=== PATIENT | male | born 1945 | race Caucasian/White ===

== ENCOUNTER → 2017-02-13 | Outpatient (CLI) | payer MEDICARE ==
--- NOTE | 2017-02-13 08:13 | US ---
EXAMINATION TYPE: US duplex aorta DATE OF EXAM: 02/13/2017 COMPARISON: NONE CLINICAL HISTORY: Screening for AAA Z13.9. EXAM MEASUREMENTS: Abdominal Aorta: Proximal: 1.5 x 1.8 cm Mid: 1.7 x 1.9 cm Distal: 1.7 x 1.7 cm Bifurcation: Right = 1.0 x 0.9 cm Left = 1.0 x 1.1 cm Suboptimal visualization due to overlying bowel gas IMPRESSION: 1. Subtle fusiform prominence of the mid to distal abdominal aorta by measurements. No aneurysmal dil atation is evident.
== END | disposition home or self-care (01) ==
LOC: RADUSWWP 07:21
PROVIDERS: ATTEND Family Medicine
DX: Z13.6 Encounter for screening for cardiovascular disorders (principal)
CPT/HCPCS: 93979

== ENCOUNTER 2017-05-07 07:21 | Day surgery (SDC) | payer MEDICARE ==
[2017-05-03 16:57] VITALS: BMI 26.9
[~2017-05-07 07:21] MED LIST: LACTATED RINGERS 1,000 ML IV SCH
[2017-05-07 07:38] VITALS: RESP 16; TEMP 98
[2017-05-07] MEDS ORDERED: LIDOCAINE 1% 20 ML VIAL (10MG/ML) FOR IV START INTRADERMA ONE (07:45)
[2017-05-07 07:49] LABS: Glucose,Whole Blood 137 mg/dL (75-99)
[2017-05-07] MEDS ORDERED: LIDOCAINE 1% INJ 10MG/ML (20 ML MDV) ONE (08:30)
[2017-05-07] MEDS ORDERED: PROPOFOL 10 MG/ML 20 ML VIAL IV ONE (08:30)
--- NOTE | 2017-05-07 09:09 | P.PCN ---
Date of Procedure: 05/07/17 Procedure(s) Performed: Procedure: Colonoscopy and polypectomy. Preoperative diagnosis: Positive cologuard stool test. Postoperative diagnosis: 1. Two small polyps snared but no large polyps or cancer. 2. Diverticulosis with no evidence of acute diverticulitis or strictures. Preparation: HalfLytely prep. Sedation: Was provided by anesthesia. Brief clinical history: The patient is a 72-year-old male who is referred for this evaluation because of positive DNA and occult blood in his stools ( cologuard). The patient had colonoscopy more than 12 years ago. He denied any abdominal symptoms, change in bowel habit or overt bleeding. Procedure: With the patient on his left lateral decubitus position and after informed consent and adequate sedation, the perianal area was inspected and it did not show any fissures or fistulas. There were no masses felt on digital rectal examination. The Olympus CFQ 160L video colonoscope was then inserted in the rectum in the usual fashion and advanced to the cecum. There were 2 small polyps seen, one in the proximal right colon and one in the rectum close to the rectosigmoid junction, which I snared and retrieved by suction, but there were no large polyps or cancer. Several small diverticular orifices were seen scattered in the sigmoid and there was a rare orifice around the hepatic flexure and on the right side with no evidence of acute diverticulitis or strictures. The mucosa appeared healthy. I retroflexed the endoscope in the rectum before the endoscope was withdrawn. The patient tolerated the procedure well. Plan: The patient was reassured. Discussed dietary measures. He will follow up with you as planned and I recommended repeat colonoscopy in 5 years.
[2017-05-07 09:20] LABS: Glucose,Whole Blood 158 mg/dL (75-99)
[2017-05-07 09:21] VITALS: BP 108/66; PULSE 60
== END 2017-05-07 09:43 | disposition home or self-care (01) ==
LOC: ORWHC2ENDO 07:21
DX: D12.2 Benign neoplasm of ascending colon (principal); K63.5 Polyp of colon; E11.9 Type 2 diabetes mellitus without complications; I10 Essential (primary) hypertension; E78.5 Hyperlipidemia, unspecified; K21.9 Gastro-esophageal reflux disease without esophagitis; Z79.82 Long term (current) use of aspirin; Z79.4 Long term (current) use of insulin; Z79.899 Other long term (current) drug therapy
CPT/HCPCS: 88305; 45385; J2001; J2704

== ENCOUNTER 2018-02-24 06:24 | Inpatient (IN) | payer MEDICARE ==
[2018-02-24] MEDS ORDERED: ONDANSETRON 4 MG/2 ML VIAL IVP STA (06:41)
[2018-02-24] MEDS ORDERED: SODIUM CHLORIDE 0.9% 1,000 ML IV STA (06:41)
--- NOTE | 2018-02-24 06:43 | ED ---
General Adult HPI - General Chief complaint: Abdominal Pain Stated complaint: Back/Abd Pain Time Seen by Provider: 02/24/18 06:34 Source: patient, family, RN notes reviewed Mode of arrival: ambulatory Limitations: no limitations - History of Present Illness Initial comments: Patient 73-year-old male presented to the emergency room today with a chief complaint of right upper quadrant abdominal pain starting yesterday afternoon. He does admit that he had a cheese sandwich for lunch. He believes that maybe his gallbladder. He states he does have a history of gallstones. Patient does admit to symptoms of nausea with some dry heaves. Patient states pains located in the right upper quadrant at times feeling wrapping around to the right side of the back. Patient currently rates pain 7/10 at this time. He denies any other symptoms or complaints. Patient denies any recent fever, chills, shortness of breath, chest pain, numbness or tingling, dysuria or hematuria, constipation or diarrhea, headaches or visual changes, or any other complaints. - Related Data Home Medications Medication Instructions Recorded Confirmed Aspirin 81 mg PO DAILY 05/03/17 02/24/18 Atorvastatin [Lipitor] 10 mg PO HS 05/03/17 02/24/18 Finasteride [Proscar] 5 mg PO HS 05/03/17 02/24/18 Fish Oil/Dha/Epa [Fish Oil 1,200 1 cap PO DAILY 05/03/17 02/24/18 mg Fish Oil] INSULIN LISPRO (HumaLOG) [HumaLOG] 11 units SQ AC-LUNCH 05/03/17 02/24/18 Insulin Lispro Protamin/Lispro 30 unit SQ QAM 05/03/17 02/24/18 [humaLOG Mix 75-25 Kwikpen] Insulin Lispro Protamin/Lispro 35 unit SQ HS 05/03/17 02/24/18 [humaLOG Mix 75-25 Kwikpen] Lisinopril-Hctz 20-12.5 mg 1 tab PO DAILY 05/03/17 02/24/18 [Zestoretic 20-12.5] Multivitamin [Men's Multi-Vitamin] 1 tab PO DAILY 05/03/17 02/24/18 metFORMIN HCL [Glucophage] 500 mg PO BID 05/03/17 02/24/18 Allergies Allergy/AdvReac Type Severity Reaction Status Date / Time bee pollen Allergy Anaphylaxis Verified 02/24/18 07:45 Review of Systems ROS Statement: Those systems with pertinent positive or pertinent negative responses have been documented in the HPI. ROS Other: All systems not noted in ROS Statement are negative. Past Medical History Past Medical History: Diabetes Mellitus, Hyperlipidemia, Hypertension Additional Past Medical History / Comment(s): resolving bronchitis, recent fecal test positive blood History of Any Multi-Drug Resistant Organisms: None Reported Past Surgical History: Orthopedic Surgery Additional Past Surgical History / Comment(s): colonoscopy, rotator cuff repair , hydrocele repair Past Anesthesia/Blood Transfusion Reactions: No Reported Reaction Past Psychological History: No Psychological Hx Reported Smoking Status: Former smoker Past Alcohol Use History: None Reported Past Drug Use History: None Reported - Past Family History Mother Family Medical History: No Reported History General Exam - General Exam Comments Initial Comments: General: The patient is awake and alert, in no distress, and does not appear acutely ill. Eye: Pupils are equal, round and reactive to light, extra-ocular movements are intact. No nystagmus. There is normal conjunctiva bilaterally. No signs of icterus. Ears, nose, mouth and throat: There are moist mucous membranes and no oral lesions. Neck: The neck is supple, there is no tenderness or JVD. Cardiovascular: There is a regular rate and rhythm. No murmur, rub or gallop is appreciated. Respiratory: Lungs are clear to auscultation, respirations are non-labored, breath sounds are equal. No wheezes, stridor, rales, or rhonchi. Gastrointestinal: Abdomen soft on palpation. No specific abdominal tenderness. No flank or CVA tenderness. No rebound or guarding. Musculoskeletal: Normal ROM, no tenderness. Strength 5/5. Sensation intact. Pulses equal bilaterally 2+. Neurological: A&O x 3. CN II-XII intact, There are no obvious motor or sensory deficits. Coordination appears grossly intact. Speech is normal. Skin: Skin is warm and dry and no rashes or lesions are noted. Psychiatric: Cooperative, appropriate mood & affect, normal judgment. Limitations: no limitations Course Vital Signs 02/24/18 06:26 Temperature 97.7 F Pulse Rate 82 Respiratory 18 Rate Blood Pressure 151/78 O2 Sat by Pulse 98 Oximetry Medical Decision Making - Medical Decision Making Patient's ultrasound reviewed and does show a mild hepatomegaly. There is evidence for cholelithiasis and mild gallbladder wall thickening. Sonographic Nieves sign absent. Findings probably represent a chronic cholecystitis. As read by radiologist Dr. Moncada. Patient's labs reviewed. No elevated white count. No fever here in emergency room. Patient currently comfortable at this time was given any pain medication. Patient amylase lipase are markedly elevated greater than 1300 and 12,000 respectively. Mild elevation of liver enzymes. Patient will be admitted to the hospital consult from surgery. Patient and family aware the plan. - Lab Data Result diagrams: 02/24/18 07:00 02/24/18 07:00 Lab Results 02/24/18 02/24/18 02/24/18 Range/Units 07:00 07:00 07:00 WBC 10.7 H (3.8-10.6) k/uL RBC 5.00 (4.30-5.90) m/uL Hgb 15.3 (13.0-17.5) gm/dL Hct 44.6 (39.0-53.0) % MCV 89.2 (80.0-100.0) fL MCH 30.6 (25.0-35.0) pg MCHC 34.3 (31.0-37.0) g/dL RDW 13.6 (11.5-15.5) % Plt Count 150 (150-450) k/uL Neutrophils % 66 % Lymphocytes % 27 % Monocytes % 6 % Eosinophils % 1 % Basophils % 1 % Neutrophils # 7.1 (1.3-7.7) k/uL Lymphocytes # 2.9 (1.0-4.8) k/uL Monocytes # 0.6 (0-1.0) k/uL Eosinophils # 0.1 (0-0.7) k/uL Basophils # 0.1 (0-0.2) k/uL PT (9.0-12.0) sec INR (<1.2) APTT (22.0-30.0) sec Sodium 140 (137-145) mmol/L Potassium 3.8 (3.5-5.1) mmol/L Chloride 105 (98-107) mmol/L Carbon Dioxide 28 (22-30) mmol/L Anion Gap 7 mmol/L BUN 21 H (9-20) mg/dL Creatinine 0.92 (0.66-1.25) mg/dL Est GFR (CKD-EPI)AfAm >90 (>60 ml/min/1.73 sqM) Est GFR (CKD-EPI)NonAf 83 (>60 ml/min/1.73 sqM) Glucose 149 H (74-99) mg/dL Calcium 8.8 (8.4-10.2) mg/dL Total Bilirubin 5.5 H (0.2-1.3) mg/dL AST 368 H (17-59) U/L ALT 427 H (21-72) U/L Alkaline Phosphatase 123 (38-126) U/L Total Creatine Kinase 63 (55-170) U/L CK-MB (CK-2) 1.6 (0.0-2.4) ng/mL CK-MB (CK-2) Rel Index 2.5 Troponin I <0.012 (0.000-0.034) ng/mL Total Protein 6.1 L (6.3-8.2) g/dL Albumin 3.5 (3.5-5.0) g/dL Amylase 1315 H* (30-110) U/L Lipase 11663 H (23-300) U/L Urine Color Urine Appearance (Clear) Urine pH (5.0-8.0) Ur Specific [place] (1.001-1.035) Urine Protein (Negative) Urine Glucose (UA) (Negative) Urine Ketones (Negative) Urine Blood (Negative) Urine Nitrite (Negative) Urine Bilirubin (Negative) Urine Urobilinogen (<2.0) mg/dL Ur Leukocyte Esterase (Negative) 02/24/18 02/24/18 Range/Units 07:00 07:00 WBC (3.8-10.6) k/uL RBC (4.30-5.90) m/uL Hgb (13.0-17.5) gm/dL Hct (39.0-53.0) % MCV (80.0-100.0) fL MCH (25.0-35.0) pg MCHC (31.0-37.0) g/dL RDW (11.5-15.5) % Plt Count (150-450) k/uL Neutrophils % % Lymphocytes % % Monocytes % % Eosinophils % % Basophils % % Neutrophils # (1.3-7.7) k/uL Lymphocytes # (1.0-4.8) k/uL Monocytes # (0-1.0) k/uL Eosinophils # (0-0.7) k/uL Basophils # (0-0.2) k/uL PT 10.9 (9.0-12.0) sec INR 1.1 (<1.2) APTT 22.3 (22.0-30.0) sec Sodium (137-145) mmol/L Potassium (3.5-5.1) mmol/L Chloride (98-107) mmol/L Carbon Dioxide (22-30) mmol/L Anion Gap mmol/L BUN (9-20) mg/dL Creatinine (0.66-1.25) mg/dL Est GFR (CKD-EPI)AfAm (>60 ml/min/1.73 sqM) Est GFR (CKD-EPI)NonAf (>60 ml/min/1.73 sqM) Glucose (74-99) mg/dL Calcium (8.4-10.2) mg/dL Total Bilirubin (0.2-1.3) mg/dL AST (17-59) U/L ALT (21-72) U/L Alkaline Phosphatase (38-126) U/L Total Creatine Kinase (55-170) U/L CK-MB (CK-2) (0.0-2.4) ng/mL CK-MB (CK-2) Rel Index Troponin I (0.000-0.034) ng/mL Total Protein (6.3-8.2) g/dL Albumin (3.5-5.0) g/dL Amylase (30-110) U/L Lipase (23-300) U/L Urine Color [place] Urine Appearance Clear (Clear) Urine pH 5.5 (5.0-8.0) Ur Specific [place] 1.013 (1.001-1.035) Urine Protein Trace H (Negative) Urine Glucose (UA) Negative (Negative) Urine Ketones Trace H (Negative) Urine Blood Negative (Negative) Urine Nitrite Negative (Negative) Urine Bilirubin 2+ H (Negative) Urine Urobilinogen 6.0 (<2.0) mg/dL Ur Leukocyte Esterase Negative (Negative) Disposition Clinical Impression: Acute pancreatitis, Cholecystitis, Elevated liver enzymes Disposition: ADMITTED IP TO THIS [facility] Condition: Stable Is patient prescribed a controlled substance at d/c from ED?: No Referrals: Diogo Naranjo MD [Primary Care Provider] - 1-2 days Time of Disposition: 08:57
[2018-02-24 07:22] LABS: Appearance,Urine Clear (Clear); Bilirubin,Urine 2+ (Negative); Blood,Urine Negative (Negative); Color,Urine Orange; Glucose,Urine (UA) Negative (Negative); Ketones,Urine Trace (Negative); Leukocyte Esterase,Urine Negative (Negative); Nitrite,Urine Negative (Negative); PH, Urine 5.5 (5.0-8.0); Protein,Urine Trace (Negative); Specific Gravity,Urine 1.013 (1.001-1.035)
[2018-02-24 07:26] LABS: Basophils # (A) 0.1 k/uL (0-0.2); Basophils % (A) 1 %; Eosinophils # (A) 0.1 k/uL (0-0.7); Eosinophils % (A) 1 %; HCT 44.6 % (39.0-53.0); HGB 15.3 gm/dL (13.0-17.5); Lymphocytes # (A) 2.9 k/uL (1.0-4.8); Lymphocytes % (A) 27 %; MCH 30.6 pg (25.0-35.0); MCHC 34.3 g/dL (31.0-37.0); MCV 89.2 fL (80.0-100.0); Mean Platelet Volume 7.8; Monocytes # (A) 0.6 k/uL (0-1.0); Monocytes % (A) 6 %; Neutrophils # (A) 7.1 k/uL (1.3-7.7); Neutrophils % (A) 66 %; Platelet Count 150 k/uL (150-450); RDW 13.6 % (11.5-15.5); WBC 10.7 k/uL (3.8-10.6)
[2018-02-24 07:28] LABS: INR 1.1 (<1.2); Partial Thromboplastin Time 22.3 sec (22.0-30.0); Prothrombin Time 10.9 sec (9.0-12.0)
[2018-02-24 07:39] LABS: ALT 427 U/L (21-72); AST 368 U/L (17-59); Albumin 3.5 g/dL (3.5-5.0); Alkaline Phosphatase 123 U/L (38-126); Anion Gap 7 mmol/L; Blood Urea Nitrogen 21 mg/dL (9-20); Calcium 8.8 mg/dL (8.4-10.2); Carbon Dioxide 28 mmol/L (22-30); Chloride 105 mmol/L (98-107); Glucose 149 mg/dL (74-99); Potassium 3.8 mmol/L (3.5-5.1); Sodium 140 mmol/L (137-145); Total Bilirubin 5.5 mg/dL (0.2-1.3); Total Protein 6.1 g/dL (6.3-8.2)
[2018-02-24 07:43] LABS: Creatine Kinase 63 U/L (55-170)
--- NOTE | 2018-02-24 07:45 | XR ---
EXAMINATION TYPE: XR chest 2V DATE OF EXAM: 02/24/2018 COMPARISON: 04/02/2010 HISTORY: 73 year-old male right upper quadrant pain TECHNIQUE: PA and lateral views FINDINGS: Heart normal size. Atherosclerotic arch calcifications. Strandy atelectasis mid and lower right lung. No consolidation or pleural effusion. IMPRESSION: No acute cardiopulmonary process.
[2018-02-24 07:52] LABS: Amylase 1315 U/L (30-110)
[2018-02-24 07:55] LABS: Creatine Kinase MB 1.6 ng/mL (0.0-2.4); Troponin I <0.012 ng/mL (0.000-0.034)
[2018-02-24 08:32] LABS: Lipase 12301 U/L (23-300)
--- NOTE | 2018-02-24 08:38 | US ---
EXAMINATION TYPE: US abdomen limited DATE OF EXAM: 02/24/2018 COMPARISON: NONE CLINICAL HISTORY: 73-year-old male Pain. Technique: Multiple sonographic images of the right upper qu adrant are obtained. FINDINGS: Carbon Paste Mixer Operator notes: Technically difficult study, severe midline bowel gas obscuring all midline organ s. FINDINGS: EXAM MEASUREMENTS: Liver Length: 18.0 cm Gallbladder Wall: 0.5 cm CBD: 4.6 mm Right Kidney: 12.0 x 5.5 x 6.0 cm Pancreas: Obscured by bowel gas Liver: Increased attenuation, hepatomegaly, difficult to penetrate, left lobe completely obscured by bowel gas Gallbladder: Extensive layering calculi. Thickened wall Evidence for sonographic Nieves's sign: no CBD: Only a small portion is visualized, within normal limits. Right Kidney: No hydronephrosis. IMPRESSION: 1. Mild hepatomegaly (18.0 cm) with at least moderate hepatic steatosis. Correlate with LFTs, lipid p rofile, and patient risk factors. 2. Cholelithiasis and mild gallbladder wall thickening. Sonographic Nieves sign is reported absent. F indings probably represent chronic cholecystitis. If further imaging evaluation is desired or there i s clinical concern for early developing acute cholecystitis, consider follow-up HIDA scan.
[2018-02-24] MEDS ORDERED: MORPHINE SULFATE 4 MG/ML SYRINGE IV PRN (08:59)
[2018-02-24] MEDS ORDERED: ACETAMINOPHEN TAB 325 MG TAB PO PRN (08:59)
[2018-02-24] MEDS ORDERED: SODIUM CHLORIDE 0.9% 1,000 ML IV ONE (08:59)
[2018-02-24] MEDS ORDERED: ONDANSETRON 4 MG/2 ML VIAL IVP PRN (08:59)
[2018-02-24] MEDS ORDERED: NALOXONE 0.4 MG/ML 1 ML VIAL IV PRN (08:59)
[2018-02-24] MEDS ORDERED: MORPHINE SULFATE 4 MG/ML SYRINGE IVP PRN (11:04)
[2018-02-24 11:20] LABS: Glucose,Whole Blood 145 mg/dL (75-99)
--- NOTE | 2018-02-24 11:49 | P.HPIM ---
History of Present Illness 73-year-old nonalcoholic came in with compensative right upper quadrant abdominal pain severe 7/since 10 in severity nonradiating which started after eating a cheese sandwich, patient does have history of gallstones. Patient is found to have highly elevated lipase and amylase and gallstones and gallbladder thickening. Patient pain completely resolved patient denied any nausea vomiting at this point of time. Patient denied any fever chills. Patient's abdominal pain completely resolved Nieves's sign is negative. Patient is also found to have elevated liver enzymes and elevated bilirubin,, common bile duct was only visualized for small portion which was within normal limits. Review of Systems REVIEW OF SYSTEMS: CONSTITUTIONAL: No fever, no malaise, no fatigue. HEENT: No recent visual problems or hearing problems. Denied any sore throat. CARDIOVASCULAR: No chest pain, orthopnea, PND, no palpitations, no syncope. PULMONARY: No shortness of breath, no cough, no hemoptysis. GASTROINTESTINAL: As mentioned in HPI NEUROLOGICAL: No headaches, no weakness, no numbness. HEMATOLOGICAL: Denies any bleeding or petechiae. GENITOURINARY: Denies any burning micturition, frequency, or urgency. MUSCULOSKELETAL/RHEUMATOLOGICAL: Denies any joint pain, swelling, or any muscle pain. ENDOCRINE: Denies any polyuria or polydipsia. The rest of the 14-point review of systems is negative. Past Medical History Past Medical History: Diabetes Mellitus, Eye Disorder, Hyperlipidemia, Hypertension, Liver Disease, Prostate Disorder Additional Past Medical History / Comment(s): Frequent bronchitis, Iddm type II , diverticular dx, benign colon polyp, BPH, arthritis several joints, varicose veins L leg, psoriasis, occasional bilateral tinnitis, past L eye sees bright lights-followed with woodwind instrument repairer and not currently a problem, hepatitis when 19 or 20yrs old-does not know type, Ecoli in blood. History of Any Multi-Drug Resistant Organisms: None Reported Past Surgical History: Orthopedic Surgery Additional Past Surgical History / Comment(s): colonoscopy/benign polypectomy, L rotator cuff repair, L hydrocele repair, wisdom teeth extraction. Past Anesthesia/Blood Transfusion Reactions: No Reported Reaction Additional Past Anesthesia/Blood Transfusion Reaction / Comment(s): Pt once had a denny for 3 days after spinal anesthesia Smoking Status: Former smoker - Past Family History Mother Family Medical History: No Reported History Additional Family Medical History / Comment(s): Mother is healthy and is 93 yrs old. Father Family Medical History: Myocardial Infarction ([place]) Additional Family Medical History / Comment(s): father of a [place] at the age of 43yrs. Medications and Allergies Home Medications Medication Instructions Recorded Confirmed Type Aspirin 81 mg PO DAILY 05/03/17 02/24/18 History Atorvastatin [Lipitor] 10 mg PO HS 05/03/17 02/24/18 History Finasteride [Proscar] 5 mg PO HS 05/03/17 02/24/18 History Fish Oil/Dha/Epa [Fish Oil 1,200 1 cap PO DAILY 05/03/17 02/24/18 History mg Fish Oil] INSULIN LISPRO (HumaLOG) [HumaLOG] 11 units SQ AC-LUNCH 05/03/17 02/24/18 History Insulin Lispro Protamin/Lispro 30 unit SQ QAM 05/03/17 02/24/18 History [humaLOG Mix 75-25 Kwikpen] Insulin Lispro Protamin/Lispro 35 unit SQ HS 05/03/17 02/24/18 History [humaLOG Mix 75-25 Kwikpen] Lisinopril-Hctz 20-12.5 mg 1 tab PO DAILY 05/03/17 02/24/18 History [Zestoretic 20-12.5] Multivitamin [Men's Multi-Vitamin] 1 tab PO DAILY 05/03/17 02/24/18 History metFORMIN HCL [Glucophage] 500 mg PO BID 05/03/17 02/24/18 History Allergies Allergy/AdvReac Type Severity Reaction Status Date / Time bee pollen Allergy Anaphylaxis Verified 02/24/18 07:45 Physical Exam Vitals: Vital Signs Temp Pulse Pulse Resp BP BP Pulse Ox 02/24/18 10:32 97.7 F 69 16 134/77 94 L 02/24/18 09:52 98.1 F 94 18 136/69 94 L 02/24/18 08:56 97.0 F L 66 18 134/67 96 02/24/18 06:26 97.7 F 82 18 151/78 98 Intake and Output 02/23/18 02/24/18 02/24/18 22:59 06:59 14:59 Other: Weight 94.801 kg PHYSICAL EXAMINATION: GENERAL: The patient is alert and oriented x3, not in any acute distress. Well developed, well nourished. HEENT: Pupils are round and equally reacting to light. EOMI. No scleral icterus. No conjunctival pallor. Normocephalic, atraumatic. No pharyngeal erythema. No thyromegaly. CARDIOVASCULAR: S1 and S2 present. No murmurs, rubs, or gallops. PULMONARY: Chest is clear to auscultation, no wheezing or crackles. ABDOMEN: Soft, nontender, nondistended, normoactive bowel sounds. No palpable organomegaly. MUSCULOSKELETAL: No joint swelling or deformity. EXTREMITIES: No cyanosis, clubbing, or pedal edema. NEUROLOGICAL: Gross neurological examination did not reveal any focal deficits. SKIN: No rashes. Results CBC & Chem 7: 02/24/18 07:00 02/24/18 07:00 Labs: Abnormal Lab Results - Last 24 Hours (Table) 02/24/18 02/24/18 02/24/18 Range/Units 07:00 07:00 07:00 WBC 10.7 H (3.8-10.6) k/uL BUN 21 H (9-20) mg/dL Glucose 149 H (74-99) mg/dL POC Glucose (mg/dL) (75-99) mg/dL Total Bilirubin 5.5 H (0.2-1.3) mg/dL AST 368 H (17-59) U/L ALT 427 H (21-72) U/L Total Protein 6.1 L (6.3-8.2) g/dL Amylase 1315 H* (30-110) U/L Lipase 01862 H (23-300) U/L Urine Protein Trace H (Negative) Urine Ketones Trace H (Negative) Urine Bilirubin 2+ H (Negative) 02/24/18 Range/Units 11:15 WBC (3.8-10.6) k/uL BUN (9-20) mg/dL Glucose (74-99) mg/dL POC Glucose (mg/dL) 145 H (75-99) mg/dL Total Bilirubin (0.2-1.3) mg/dL AST (17-59) U/L ALT (21-72) U/L Total Protein (6.3-8.2) g/dL Amylase (30-110) U/L Lipase (23-300) U/L Urine Protein (Negative) Urine Ketones (Negative) Urine Bilirubin (Negative) Thrombosis Risk Factor Assmnt - Choose All That Apply Any of the Below Risk Factors Present?: Yes Each Factor Represents 1 point: Obesity (BMI >25) Other Risk Factors: Yes Each Risk Factor Represents 2 Points: Age 61-74 years Other congenital or acquired thrombophilia - If yes, enter type in comment: No Thrombosis Risk Factor Assessment Total Risk Factor Score: 3 Thrombosis Risk Factor Assessment Level: Moderate Risk Assessment and Plan Plan: -Acute pancreatitis possibly gallstone pancreatitis patient may have passed gallstone, patient will remain nothing by mouth today we'll start him on diet if he is clinically doing well tomorrow., And by all that is not visualized well patient does have elevated liver enzymes, and bile duct stone cannot be completely ruled out but will just monitor with repeat liver enzymes today. There is no evidence of necrotizing pancreatitis and will not require any antibiotics at this time. -Leukocytosis secondary to assessment #1 -Type 2 diabetes mellitus hold off on all his diabetic medications Will use sliding scale insulin -Hyperlipidemia -Hypertension -Benign prostatic hepatorrhaphy All his medications are on hold as patient is nothing by mouth for today.
[2018-02-24] MEDS: PANTOPRAZOLE 40 MG/10 ML VIAL IVP SCH ×2 (12:34→20:49)
[2018-02-24] MEDS: INSULIN ASPART 100 UNIT/ML 1 ML 10 ML VIAL SQ SCH ×3 (12:34→20:48)
[2018-02-24] MEDS: SODIUM CHLORIDE 0.9% 1,000 ML IV SCH (16:27)
[2018-02-24 17:20] LABS: Glucose,Whole Blood 122 mg/dL (75-99)
--- NOTE | 2018-02-24 18:13 | P.GSCN ---
History of Present Illness Consult date: 02/24/18 History of present illness: The patient is a very pleasant 73-year-old gentleman who presented after developing a gallstone attack with right upper quadrant abdominal pain radiation to the right upper back. He presented with elevated liver enzymes including pancreatitis. Ultrasound also consistent with multiple gallstones. Since nothing by mouth status, his abdominal pain has improved. As a result of his studies, Gen. surgery's consulted for possible cholecystectomy. ABDOMEN: Soft, nontender, nondistended STUDIES: Ultrasound of the gallbladder reviewed consistent with irritable gallstones PLAN: 1. Surgical options for inpatient cholecystectomy versus outpatient surgery review 2. In the interim, may have ice chips. 3. Surgical intervention on hold pending resolution of pancreatitis. Past Medical History Past Medical History: Diabetes Mellitus, Eye Disorder, Hyperlipidemia, Hypertension, Liver Disease, Prostate Disorder Additional Past Medical History / Comment(s): Frequent bronchitis, Iddm type II , diverticular dx, benign colon polyp, BPH, arthritis several joints, varicose veins L leg, psoriasis, occasional bilateral tinnitis, past L eye sees bright lights-followed with occupational safety specialist and not currently a problem, hepatitis when 19 or 20yrs old-does not know type, Ecoli in blood. History of Any Multi-Drug Resistant Organisms: None Reported Past Surgical History: Orthopedic Surgery Additional Past Surgical History / Comment(s): colonoscopy/benign polypectomy, L rotator cuff repair, L hydrocele repair, wisdom teeth extraction. Past Anesthesia/Blood Transfusion Reactions: No Reported Reaction Additional Past Anesthesia/Blood Transfusion Reaction / Comm: Pt once had a denny for 3 days after spinal anesthesia Smoking Status: Former smoker - Past Family History Mother Family Medical History: No Reported History Additional Family Medical History / Comment(s): Mother is healthy and is 93 yrs old. Father Family Medical History: Myocardial Infarction ([place]) Additional Family Medical History / Comment(s): father of a [place] at the age of 43yrs. Medications and Allergies Home Medications Medication Instructions Recorded Confirmed Type Aspirin 81 mg PO DAILY 05/03/17 02/24/18 History Atorvastatin [Lipitor] 10 mg PO HS 05/03/17 02/24/18 History Finasteride [Proscar] 5 mg PO HS 05/03/17 02/24/18 History Fish Oil/Dha/Epa [Fish Oil 1,200 1 cap PO DAILY 05/03/17 02/24/18 History mg Fish Oil] INSULIN LISPRO (HumaLOG) [HumaLOG] 11 units SQ AC-LUNCH 05/03/17 02/24/18 History Insulin Lispro Protamin/Lispro 30 unit SQ QAM 05/03/17 02/24/18 History [humaLOG Mix 75-25 Kwikpen] Insulin Lispro Protamin/Lispro 35 unit SQ HS 05/03/17 02/24/18 History [humaLOG Mix 75-25 Kwikpen] Lisinopril-Hctz 20-12.5 mg 1 tab PO DAILY 05/03/17 02/24/18 History [Zestoretic 20-12.5] Multivitamin [Men's Multi-Vitamin] 1 tab PO DAILY 05/03/17 02/24/18 History metFORMIN HCL [Glucophage] 500 mg PO BID 05/03/17 02/24/18 History Allergies Allergy/AdvReac Type Severity Reaction Status Date / Time bee pollen Allergy Anaphylaxis Verified 02/24/18 07:45 Surgical - Exam Vital Signs Temp Pulse Resp BP Pulse Ox 97.7 F 82 18 151/78 98 02/24/18 06:26 02/24/18 06:26 02/24/18 06:26 02/24/18 06:26 02/24/18 06:26 Results - Labs 02/24/18 07:00 02/24/18 07:00 Abnormal Lab Results - Last 24 Hours (Table) 02/24/18 02/24/18 02/24/18 Range/Units 07:00 07:00 07:00 WBC 10.7 H (3.8-10.6) k/uL BUN 21 H (9-20) mg/dL Glucose 149 H (74-99) mg/dL POC Glucose (mg/dL) (75-99) mg/dL Total Bilirubin 5.5 H (0.2-1.3) mg/dL AST 368 H (17-59) U/L ALT 427 H (21-72) U/L Total Protein 6.1 L (6.3-8.2) g/dL Amylase 1315 H* (30-110) U/L Lipase 41908 H (23-300) U/L Urine Protein Trace H (Negative) Urine Ketones Trace H (Negative) Urine Bilirubin 2+ H (Negative) 02/24/18 02/24/18 Range/Units 11:15 17:16 WBC (3.8-10.6) k/uL BUN (9-20) mg/dL Glucose (74-99) mg/dL POC Glucose (mg/dL) 145 H 122 H (75-99) mg/dL Total Bilirubin (0.2-1.3) mg/dL AST (17-59) U/L ALT (21-72) U/L Total Protein (6.3-8.2) g/dL Amylase (30-110) U/L Lipase (23-300) U/L Urine Protein (Negative) Urine Ketones (Negative) Urine Bilirubin (Negative) Diabetes panel 02/24/18 Range/Units 07:00 Sodium 140 (137-145) mmol/L Potassium 3.8 (3.5-5.1) mmol/L Chloride 105 (98-107) mmol/L Carbon Dioxide 28 (22-30) mmol/L BUN 21 H (9-20) mg/dL Creatinine 0.92 (0.66-1.25) mg/dL Glucose 149 H (74-99) mg/dL Calcium 8.8 (8.4-10.2) mg/dL AST 368 H (17-59) U/L ALT 427 H (21-72) U/L Alkaline Phosphatase 123 (38-126) U/L Total Protein 6.1 L (6.3-8.2) g/dL Albumin 3.5 (3.5-5.0) g/dL Calcium panel 02/24/18 Range/Units 07:00 Calcium 8.8 (8.4-10.2) mg/dL Albumin 3.5 (3.5-5.0) g/dL Pituitary panel 02/24/18 Range/Units 07:00 Sodium 140 (137-145) mmol/L Potassium 3.8 (3.5-5.1) mmol/L Chloride 105 (98-107) mmol/L Carbon Dioxide 28 (22-30) mmol/L BUN 21 H (9-20) mg/dL Creatinine 0.92 (0.66-1.25) mg/dL Glucose 149 H (74-99) mg/dL Calcium 8.8 (8.4-10.2) mg/dL Adrenal panel 02/24/18 Range/Units 07:00 Sodium 140 (137-145) mmol/L Potassium 3.8 (3.5-5.1) mmol/L Chloride 105 (98-107) mmol/L Carbon Dioxide 28 (22-30) mmol/L BUN 21 H (9-20) mg/dL Creatinine 0.92 (0.66-1.25) mg/dL Glucose 149 H (74-99) mg/dL Calcium 8.8 (8.4-10.2) mg/dL Total Bilirubin 5.5 H (0.2-1.3) mg/dL AST 368 H (17-59) U/L ALT 427 H (21-72) U/L Alkaline Phosphatase 123 (38-126) U/L Total Protein 6.1 L (6.3-8.2) g/dL Albumin 3.5 (3.5-5.0) g/dL
[2018-02-24 20:11] LABS: Glucose,Whole Blood 130 mg/dL (75-99)
[2018-02-25] MEDS: SODIUM CHLORIDE 0.9% 1,000 ML IV SCH ×2 (05:50→12:42)
[2018-02-25 06:49] LABS: Glucose,Whole Blood 142 mg/dL (75-99)
[2018-02-25 08:53] LABS: Basophils % (A) 0 %; Eosinophils # (A) 0.1 k/uL (0-0.7); Eosinophils % (A) 2 %; HCT 41.7 % (39.0-53.0); HGB 13.4 gm/dL (13.0-17.5); Lymphocytes # (A) 1.9 k/uL (1.0-4.8); Lymphocytes % (A) 28 %; MCH 29.2 pg (25.0-35.0); MCHC 32.1 g/dL (31.0-37.0); MCV 90.9 fL (80.0-100.0); Mean Platelet Volume 8.3; Monocytes # (A) 0.5 k/uL (0-1.0); Monocytes % (A) 7 %; Neutrophils # (A) 4.1 k/uL (1.3-7.7); Neutrophils % (A) 62 %; Platelet Count 108 k/uL (150-450); RBC 4.59 m/uL (4.30-5.90); RDW 13.3 % (11.5-15.5); WBC 6.6 k/uL (3.8-10.6)
[2018-02-25] MEDS: INSULIN ASPART 100 UNIT/ML 1 ML 10 ML VIAL SQ SCH ×3 (09:05→17:59)
[2018-02-25] MEDS: PANTOPRAZOLE 40 MG/10 ML VIAL IVP SCH (09:06)
[2018-02-25 09:12] LABS: ALT 321 U/L (21-72); AST 173 U/L (17-59); Alkaline Phosphatase 104 U/L (38-126); Anion Gap 7 mmol/L; Blood Urea Nitrogen 21 mg/dL (9-20); Calcium 8.1 mg/dL (8.4-10.2); Carbon Dioxide 24 mmol/L (22-30); Chloride 109 mmol/L (98-107); Glucose 140 mg/dL (74-99); Potassium 4.1 mmol/L (3.5-5.1); Sodium 140 mmol/L (137-145); Total Protein 5.4 g/dL (6.3-8.2)
[2018-02-25 11:08] LABS: Glucose,Whole Blood 149 mg/dL (75-99)
[2018-02-25 14:52] VITALS: BP 162/84; PULSE 65; RESP 18; TEMP 97.6
--- NOTE | 2018-02-25 15:08 | P.DS ---
Providers Date of admission: 02/24/18 09:46 Attending physician: Curtis Xavier Consults: 02/24/18 08:59 Consult Physician Stat Consulting Provider: Eleanor Villafana Consult Reason/Comments: Pancreatitis, cholecystitis Do you want consulting provider notified?: Yes Primary care physician: [facility] Course: 73-year-old the pleasant gentleman admitted with gallstone pancreatitis. Patient was evaluated by surgery., After discussing with the patient and surgeon depression was made to follow-up as an outpatient for outpatient cholecystectomy. Pancreatitis improved patient is tolerating full liquid diet now if he tolerate soft diet patient will be discharged today. PHYSICAL EXAMINATION: GENERAL: The patient is alert and oriented x3, not in any acute distress. Well developed, well nourished. HEENT: Pupils are round and equally reacting to light. EOMI. No scleral icterus. No conjunctival pallor. Normocephalic, atraumatic. No pharyngeal erythema. No thyromegaly. CARDIOVASCULAR: S1 and S2 present. No murmurs, rubs, or gallops. PULMONARY: Chest is clear to auscultation, no wheezing or crackles. ABDOMEN: Soft, nontender, nondistended, normoactive bowel sounds. No palpable organomegaly. MUSCULOSKELETAL: No joint swelling or deformity. EXTREMITIES: No cyanosis, clubbing, or pedal edema. NEUROLOGICAL: Gross neurological examination did not reveal any focal deficits. SKIN: No rashes. Assessment and Plan Plan: -Acute pancreatitis possibly gallstone pancreatitis -Type 2 diabetes mellitus -Hyperlipidemia -Hypertension -Benign prostatic hepatorrhaphy Patient Condition at Discharge: Stable Plan - Discharge Summary Discharge Rx Participant: No New Discharge Prescriptions: No Action Finasteride [Proscar] 5 mg PO HS Atorvastatin [Lipitor] 10 mg PO HS metFORMIN HCL [Glucophage] 500 mg PO BID Lisinopril-Hctz 20-12.5 mg [Zestoretic 20-12.5] 1 tab PO DAILY INSULIN LISPRO (HumaLOG) [HumaLOG] 11 units SQ AC-LUNCH Aspirin 81 mg PO DAILY Multivitamin [Men's Multi-Vitamin] 1 tab PO DAILY Insulin Lispro Protamin/Lispro [humaLOG Mix 75-25 Kwikpen] 30 unit SQ QAM Insulin Lispro Protamin/Lispro [humaLOG Mix 75-25 Kwikpen] 35 unit SQ HS Fish Oil/Dha/Epa [Fish Oil 1,200 mg Fish Oil] 1 cap PO DAILY Discharge Medication List Aspirin 81 mg PO DAILY 05/03/17 [History] Atorvastatin [Lipitor] 10 mg PO HS 05/03/17 [History] Finasteride [Proscar] 5 mg PO HS 05/03/17 [History] Fish Oil/Dha/Epa [Fish Oil 1,200 mg Fish Oil] 1 cap PO DAILY 05/03/17 [History] INSULIN LISPRO (HumaLOG) [HumaLOG] 11 units SQ AC-LUNCH 05/03/17 [History] Insulin Lispro Protamin/Lispro [humaLOG Mix 75-25 Kwikpen] 30 unit SQ QAM [History] Insulin Lispro Protamin/Lispro [humaLOG Mix 75-25 Kwikpen] 35 unit SQ HS [History] Lisinopril-Hctz 20-12.5 mg [Zestoretic 20-12.5] 1 tab PO DAILY 05/03/17 [History ] Multivitamin [Men's Multi-Vitamin] 1 tab PO DAILY 05/03/17 [History] metFORMIN HCL [Glucophage] 500 mg PO BID 05/03/17 [History] Follow up Appointment(s)/Referral(s): Diogo Naranjo MD [Primary Care Provider] - 3 Days Eleanor Villafana MD [STAFF PHYSICIAN] - 03/11/18 1:30 pm Discharge Disposition: HOME SELF-CARE
[2018-02-25 17:26] LABS: Glucose,Whole Blood 244 mg/dL (75-99)
[2018-02-25] MEDS ORDERED: FINASTERIDE 5 MG TAB PO SCH (21:00)
[2018-02-25] MEDS ORDERED: ATORVASTATIN 10 MG TAB PO SCH (21:00)
== END 2018-02-25 18:15 | disposition home or self-care (01) | DRG 439 ==
LOC: EC 06:24 → 5MS5E 09:46
PROVIDERS: ADMIT Hospitalist; ATTEND Hospitalist
DX: K85.10 Biliary acute pancreatitis without necrosis or infection (principal); K80.64 Calculus of gallbladder and bile duct with chronic cholecystitis without obstruction; E11.9 Type 2 diabetes mellitus without complications; E78.5 Hyperlipidemia, unspecified; I10 Essential (primary) hypertension; N40.0 Benign prostatic hyperplasia without lower urinary tract symptoms; Z79.4 Long term (current) use of insulin; Z79.82 Long term (current) use of aspirin; Z82.49 Family history of ischemic heart disease and other diseases of the circulatory system; Z86.010 Personal history of colon polyps; Z87.891 Personal history of nicotine dependence; Z79.899 Other long term (current) drug therapy; Z91.030 Bee allergy status
CPT/HCPCS: 36415; 71046; 76705; 80053; 81003; 82150; 82550; 82553; 83690; 84484; 85025; 85610; 85730; 93005; 96361; 96374; 99285

== ENCOUNTER → 2022-04-26 | Outpatient (CLI) | payer MEDICARE ==
--- NOTE | 2022-04-26 11:10 | MR ---
EXAMINATION TYPE: MR Prostate wo/w con DATE OF EXAM: 04/26/2022 COMPARISON: None. IMAGE QUALITY: . 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 TECHNIQUE: Examination was performed using a 3T MRI without an endorectal coil. Multiparametric imaging was perf ormed with T2 mutliplanar sequences, axial diffusion weighted imaging and dynamic contrast enhanced i maging, utilizing 9ml mL intravenous Gadavist gadolinium contrast. FINDINGS: There is no clinically significant cancer identified. PROSTATE VOLUME: 7.9 cm SI x 5.1 cm AP x 5.1 cm LR Vol= 107.59 cc PSA DENSITY: 0.04 ng/ml/cc Predicted PSA equals 12.91 Markedly enlarged prostate gland consistent with BPH bulges into bladder base. Marked transitional zo ne hypertrophy. Site 1: Central/transitional area Size: 2.2 x 3.0 cm AP by 2.2 cm T2 moderately hypointense area with obscured margins right aspect pro state gland laterally centered in the base extending towards the mid zone. No restricted diffusion. Seminal vesicles appear within normal limits. Bladder shows mild trabeculation. Visualized osseous st ructures are intact. No suspicious bowel dilatation. IMPRESSION: Markedly enlarged prostate consistent with BPH. Suspicious area right base centrally, toño hnically PIRADS 5 lesion because of size and T2 signal despite lack of increased signal on diffusion- weighted imaging were diminished signal on ADC mapping. Consider repeat targeted biopsy of this level . MRI Stage: T1c N0 M0 based on review of pelvic images. False negative rates for MRI range from 5-20% depending on risk profile. Assessment Categories: 1 ? Very low (clinically significant cancer is highly unlikely to be present) 2 ? Low (clinically significant cancer is unlikely to be present) 3 ? Intermediate (the presence of clinically significant cancer is equivocal) 4 ? High (clinically significant cancer is likely to be present) 5 ? Very high (clinically significant cancer is highly likely to be present) Locations: PZ = peripheral zone; TZ = transition zone CZ=central zone; AFS = anterior fibromuscular stroma a=anterior half (i.e. PZa=anterior half of peripheral zone); pm= posterior medial (i.e PZpm) pl = postero-lateral (i.e. PZpl); p = posterior half (i.e. TZp) ; a = anterior half (i.e TZa or P Za) Other: N=no or no; E= equivocal; Y=yes EPE = extraprostatic extension NVB = neurovascular bundle NA = not applicable/not available
== END | disposition home or self-care (01) ==
LOC: RADMRIMAIN 08:41
PROVIDERS: ATTEND Radiology Radiation Oncology
DX: C61 Malignant neoplasm of prostate (principal)
CPT/HCPCS: 72197; A9585

== ENCOUNTER → 2022-05-03 | Outpatient (CLI) | payer MEDICARE ==
[2022-05-03 14:32] LABS: Basophils # (A) 0.04 X 10*3/uL (0.00-0.10); Basophils % (A) 0.5 %; Eosinophils # (A) 0.14 X 10*3/uL (0.04-0.35); Eosinophils % (A) 1.9 %; HCT 46.6 % (39.6-50.0); HGB 16.1 g/dL (13.0-17.0); Immature Grans, Automated 0.3 %; Lymphocytes # (A) 3.86 X 10*3/uL (0.90-5.00); Lymphocytes % (A) 51.7 %; MCHC 34.5 g/dL (32.0-37.0); MCV 89.8 fL (80.0-97.0); Mean Platelet Volume 11.6 fL (9.5-12.2); Monocytes # (A) 0.59 X 10*3/uL (0.20-1.00); Monocytes % (A) 7.9 %; NRBC Per 100 WBC 0 /100 WBCS (0.0-0.0); Neutrophils # (A) 2.81 X 10*3/uL (1.80-7.70); Neutrophils % (A) 37.7 %; Platelet Count 156 X 10*3/uL (140-440); RBC 5.19 X 10*6/uL (4.40-5.60); RDW 12.4 % (11.5-14.5); WBC 7.46 X 10*3/uL (4.50-10.00)
[2022-05-03 14:42] LABS: African American GFR (CKD) 84.4 (60.0-200.0); Anion Gap 9.9 mmol/L (10.00-18.00); BUN/Creat Ratio 22.5 Ratio (12.00-20.00); Blood Urea Nitrogen 22.5 mg/dL (9.0-27.0); Carbon Dioxide 27.1 mmol/L (20.0-27.5); Non-African American GFR(CKD) 72.8 (60.0-200.0)
== END | disposition home or self-care (01) ==
LOC: LABPAT 10:10
PROVIDERS: ATTEND Urology
DX: Z01.812 Encounter for preprocedural laboratory examination (principal); C61 Malignant neoplasm of prostate
CPT/HCPCS: 36415; 80048; 85025

== ENCOUNTER 2022-05-11 13:47 | Day surgery (SDC) | payer MEDICARE ==
--- NOTE | 2022-05-07 07:12 | P.GSHP ---
History of Present Illness H&P Date: 05/07/22 Chief Complaint: Prostate cancer The patient is a 77-year-old white male with a mildly elevated PSA level, most recently 4.16 in December 2021. He has taken finasteride since 2008. Prostate ultrasound in 2005 revealed a prostate volume of 87 mL. DEDE in January showed right apical prominence. He underwent a prostate ultrasound with biopsies 02/09/2022. The prostate volume was 81.5 mL. 1 of 16 biopsies showed [place] 7 (3+4) adenocarcinoma. The patient was offered the options of active surveillance, IMRT, and prostatectomy. The pros and cons of each were reviewed, and he has elected to be treated with IMRT. He now comes for SpaceOAR implant. - Cardiovascular Cardiovascular: Reports high blood pressure - Genitourinary (Male) Genitourinary: Reports nocturia Past Medical History Past Medical History: Diabetes Mellitus, Eye Disorder, Hyperlipidemia, Hypertension, Liver Disease, Osteoarthritis (OA), Prostate Disorder Additional Past Medical History / Comment(s): Frequent bronchitis, diverticular dx,BPH, varicose veins L leg, hepatitis when 19 or 20yrs old-does not know type, History of Any Multi-Drug Resistant Organisms: None Reported Past Surgical History: Orthopedic Surgery Additional Past Surgical History / Comment(s): colonoscopy/benign polypectomy, L rotator cuff repair, L hydrocele repair, wisdom teeth extraction.VASECTOMY Past Anesthesia/Blood Transfusion Reactions: No Reported Reaction Additional Past Anesthesia/Blood Transfusion Reaction / Comment(s): Pt once had a denny for 3 days after spinal anesthesia Past Psychological History: No Psychological Hx Reported Past Alcohol Use History: Rare Additional Past Alcohol Use History / Comment(s): Pt started smoking in 10 and quit in 1983 SMOKED 1PPD Past Drug Use History: None Reported - Past Family History Mother Family Medical History: No Reported History Additional Family Medical History / Comment(s): Mother is healthy and is 93 yrs old. Father Family Medical History: Myocardial Infarction ([place]) Additional Family Medical History / Comment(s): father of a [place] at the age of 43yrs. Medications and Allergies Home Medications Medication Instructions Recorded Confirmed Type Aspirin 81 mg PO DAILY 05/03/17 04/18/18 History Atorvastatin [Lipitor] 10 mg PO HS 05/03/17 04/18/18 History Finasteride [Proscar] 5 mg PO HS 05/03/17 04/18/18 History INSULIN LISPRO (HumaLOG) [HumaLOG] 11 units SQ AC-LUNCH 05/03/17 04/18/18 History Insulin Lispro Protamin/Lispro 31 unit SQ QAM 05/03/17 04/18/18 History [humaLOG Mix 75-25 Kwikpen] Insulin Lispro Protamin/Lispro 36 unit SQ HS 05/03/17 04/18/18 History [humaLOG Mix 75-25 Kwikpen] Lisinopril-Hctz 20-12.5 mg 1 tab PO DAILY 05/03/17 04/18/18 History [Zestoretic 20-12.5] Multivitamin [Men's Multi-Vitamin] 1 tab PO DAILY 05/03/17 04/18/18 History metFORMIN HCL [Glucophage] 500 mg PO BID 05/03/17 04/18/18 History HYDROcodone/APAP 5-325MG [Morse 1 tab PO Q6HR PRN 3 Days #12 tab 04/18/18 Rx 5-325] Ibuprofen [Motrin] 600 mg PO Q8HR PRN #20 tab 04/18/18 Rx Allergies Allergy/AdvReac Type Severity Reaction Status Date / Time bee pollen Allergy Anaphylaxis Verified 04/18/18 06:22 Surgical - Exam - General well developed, well nourished, no distress - Respiratory normal respiratory effort - Abdomen Abdomen: soft, non tender, no guarding, no rigid, no rebound - Genitourinary normal penis with no external lesions, testicles non-tender - Rectum Rectum: normal sphincter tone, no masses, other (Prostate enlarged with right apical prominence) - Psychiatric oriented to time, oriented to person, oriented to place, speech is normal, memory intact Assessment and Plan (1) Malignant neoplasm of prostate Status: Acute Code(s): C61 - MALIGNANT NEOPLASM OF PROSTATE SNOMED Code(s): 077174322 Plan: The SpaceOar implant has been reviewed in detail with the patient. He understands that the rationale for this is to create separation between the prostate and rectum, thus reducing the risk of radiation proctitis. The material begins to breakdown 12-13 weeks following implant, and is reabsorbed by the body. Risks include anesthesia, bleeding, infection, and perineal discomfort. He understands that if the rectal wall is perforated the procedure will need to be aborted. The procedure will be performed by Dr. Brock.
[2022-05-09 14:41] VITALS: BMI 27.7
[~2022-05-11 13:47] MED LIST changes: +DEXAMETHASONE SOD PHOSPHATE 4 MG/ML 1 ML VIAL IV ONE; +HYDROmorphone 0.5 MG/0.5 ML SYRINGE IVP PRN; +MIDAZOLAM 2 MG/2 ML VIAL IV PRN; +ONDANSETRON 4 MG/2 ML VIAL IVP ONE
[2022-05-11 14:08] VITALS: TEMP 97.3
[2022-05-11 14:18] LABS: Glucose,Whole Blood 147 mg/dL (70-110)
[2022-05-11] MEDS ORDERED: PROPOFOL 10 MG/ML 20 ML VIAL IV ONE (14:30)
[2022-05-11] MEDS ORDERED: fentaNYL (PF) 50 MCG/ML 2 ML AMP ONE (14:30)
[2022-05-11] MEDS ORDERED: MIDAZOLAM 2 MG/2 ML VIAL ONE (14:30)
[2022-05-11] MEDS ORDERED: LIDOCAINE 2% INJ 20 MG/ML (2 ML VIAL) ONE (14:30)
[2022-05-11] MEDS ORDERED: KETAMINE 10 MG/ML 20 ML VIAL ONE (14:30)
[2022-05-11] MEDS ORDERED: LIDOCAINE 2% INJ 20 MG/ML SQ ONE ×2 (14:49)
--- NOTE | 2022-05-11 14:58 | P.OP ---
Date of Procedure: 05/11/22 Preoperative Diagnosis: Prostate cancer Postoperative Diagnosis: Same Procedure(s) Performed: SpaceOR Placement Implants: SpaceOR gel Anesthesia: MAC Surgeon: Shmuel Brock Estimated Blood Loss (ml): 1 Pathology: none sent Condition: stable Disposition: PACU Indications for Procedure: The patient is a 77-year-old white male with a mildly elevated PSA level, most recently 4.16 in December 2021. He has taken finasteride since 2008. Prostate ultrasound in 2005 revealed a prostate volume of 87 mL. DEDE in January showed right apical prominence. He underwent a prostate ultrasound with biopsies 02/09/2022. The prostate volume was 81.5 mL. 1 of 16 biopsies showed [place] 7 (3+4) adenocarcinoma. The patient was offered the options of active surveillance, IMRT, and prostatectomy. The pros and cons of each were reviewed, and he has elected to be treated with IMRT. He now comes for SpaceOAR implant. Description of Procedure: The patient was taken to the operating room and placed in the dorsolithotomy position, with his legs supported in Natan stirrups. The external genitalia was prepped and draped sterilely. The transrectal ultrasound probe was placed intrarectally. The prostate was imaged. The probe was then placed within the stabilizing stand. A spinal needle was advanced under ultrasonic guidance to the level of the urogenital diaphragm, and lidocaine was used to infiltrate the tissues as the needle was withdrawn. Next, the SpaceOAR needle was passed through the midline of the perineum, 1-2 cm anterior to the anal opening. The needle was slowly advanced under ultrasonic guidance until the needle tip was located within the fat plane between the prostate and rectum, at the level of the mid prostate gland. The needle was confirmed to be midline on the axial imaging. A small amount of normal saline was injected for hydrodissection. Next, the SpaceOAR components were mixed and loaded into the Y connector per protocol. The Y connector was then connected to the needle, and the components were injected slowly over a course of approximately 10 seconds. A total of 10 ml was injected. Significant distance was created between the prostate and rectum, as desired. It should be noted that at no point was there any concern of rectal perforation. The needle was withdrawn, as well as the transrectal ultrasound probe, and the procedure was terminated. The patient tolerated the procedure well and was taken to the recovery room in stable condition
[2022-05-11 15:14] VITALS: RESP 16
[2022-05-11 15:18] VITALS: BP 118/69; PULSE 63
[2022-05-11 15:28] LABS: Glucose,Whole Blood 133 mg/dL (70-110)
== END 2022-05-11 15:36 | disposition home or self-care (01) ==
LOC: OR 13:47
PROVIDERS: ATTEND Urology
DX: C61 Malignant neoplasm of prostate (principal); E11.9 Type 2 diabetes mellitus without complications; E78.5 Hyperlipidemia, unspecified; I10 Essential (primary) hypertension; M19.90 Unspecified osteoarthritis, unspecified site; Z79.82 Long term (current) use of aspirin; Z79.899 Other long term (current) drug therapy; Z79.890 Hormone replacement therapy; Z79.4 Long term (current) use of insulin; Z79.84 Long term (current) use of oral hypoglycemic drugs
CPT/HCPCS: 55874; C1889; J2001 ×2; J2250; J1100; J0690; J2405; J3010; J2704

== ENCOUNTER → 2022-11-15 | Outpatient (CLI) | payer MEDICARE ==
[2022-11-15 16:28] LABS: Testosterone 4.57 ng/mL (86.98-780.10)
[2022-11-15 16:30] LABS: Prostate Specific Antigen <0.01 ng/mL (0.00-6.50)
== END | disposition home or self-care (01) ==
LOC: LABWHC1 08:47
PROVIDERS: ATTEND Radiology Radiation Oncology
DX: C61 Malignant neoplasm of prostate (principal); N40.0 Benign prostatic hyperplasia without lower urinary tract symptoms; Z87.891 Personal history of nicotine dependence
CPT/HCPCS: 36415; 84153; 84403

== ENCOUNTER → 2023-08-21 | Outpatient (CLI) | payer MEDICARE ==
[2023-08-21 15:27] LABS: Prostate Specific Antigen 0.05 ng/mL (0.000-6.500)
== END | disposition home or self-care (01) ==
LOC: LABWHC1 11:00
PROVIDERS: ATTEND Radiology Radiation Oncology
DX: Z08 Encounter for follow-up examination after completed treatment for malignant neoplasm (principal); C61 Malignant neoplasm of prostate; N40.0 Benign prostatic hyperplasia without lower urinary tract symptoms; Z87.891 Personal history of nicotine dependence
CPT/HCPCS: 36415; 84153; 84403

== ENCOUNTER → 2024-12-10 | Outpatient (CLI) | payer MEDICARE | END | disposition home or self-care (01) | LOC: LABWHC1 13:04 | PROVIDERS: ATTEND Radiology Radiation Oncology | DX: Z08 Encounter for follow-up examination after completed treatment for malignant neoplasm (principal); C61 Malignant neoplasm of prostate; N40.0 Benign prostatic hyperplasia without lower urinary tract symptoms; Z87.891 Personal history of nicotine dependence | CPT/HCPCS: 36415; 84153 ==